=== PATIENT | female | born 1945 | race Caucasian/White ===

== ENCOUNTER → 2018-07-27 | Day surgery (SDC) | payer OTHER ==
[2018-07-24 14:56] LABS: BASOPHILS % 0.3 % (0.0-1.0); EOSINOPHILS # (AUTO) 0.2 (0.0-0.4); EOSINOPHILS % 2.9 % (0.0-6.0); HEMOGLOBIN 12.5 g/dL (12.0-16.0); LYMPHOCYTES # (AUTO) 3.3 (1.0-3.2); LYMPHOCYTES % 43.3 % (18.0-39.1); MEAN CORPUSCULAR HEMOGLOBIN 28.7 pg (28-32); MEAN CORPUSCULAR HGB CONC 32.1 g/dL (31-35); MEAN CORPUSCULAR VOLUME 89.4 fL (81-99); MONOCYTES # (AUTO) 0.6 (0.2-0.8); MONOCYTES % 7.8 % (4.4-11.3); NEUTROPHILS # (AUTO) 3.4 (2.1-6.9); NEUTROPHILS % 45.4 % (38.7-80.0); PLATELET COUNT 235 x10e3/uL (140-360); RED BLOOD COUNT 4.36 x10e6/uL (3.6-5.1); RED CELL DISTRIBUTION WIDTH 13.6 % (11.7-14.4)
[~2018-07-27] MED LIST: BREO ELLIPTA INH; CARTIA XT180 MG PO; FENTANYL CITRATE/PF 100MCG/2 ML INJ ONE; LEVOTHYROXINE112 MCG PO; LISINOPRIL10 MG PO; LOSARTAN POTAS100 MG PO; MEGACE40 MG; METFORMIN HCL500 MG PO; MIDAZOLAM HCL 2 MG/2 ML VIAL ONE; PROPOFOL IV EMULSION 10 MG/ML 50 ML VIAL ONE; SIMVASTATIN20 MG PO; ULTRAM50 MG PO; Z.0.GLUMETZA500 MG; Z.0.SYNTHROID125 MCG; Z.0.ZESTRIL10 MG; [UNRECOGNIZED DRUG - OTHER]
[2018-07-27 12:50] VITALS: BP 128/74
--- NOTE | 2018-07-27 15:18 | Operative Report ---
DATE OF PROCEDURE: July 27, 2018 REFERRING PHYSICIAN: Dr. Leo Herrera PROCEDURES PERFORMED 1. Esophagogastroduodenoscopy with biopsies. 2. Colonoscopy with polypectomy. INDICATIONS FOR EGD: Upper abdominal pain, history of heartburn. INDICATIONS FOR COLONOSCOPY: History of ulcerated cecum. History of colon polyps. Colonoscopy is being carried out to re-evaluate the cecum. MEDICATION: Patient was done under MAC. Please see anesthesiologist's note. PROCEDURE: With the patient in the left lateral decubitus position, the flexible fiberoptic Olympus gastroscope was introduced into the esophagus under direct visualization any difficulty. There was some patchy erythema noted in the distal esophagus. The scope was then advanced with ease into the stomach. Mucosa overlying the antrum and the body revealed some diffuse erythema and moderate edema, and biopsies were obtained and sent to stain for H. pylori. The pylorus was of normal contour and shape. It was intubated with ease, and the scope was advanced all the way to the 2nd portion of the duodenum. The scope was then withdrawn slowly. Mucosa overlying the proximal 2nd portion and the duodenal bulb appeared to be within normal limits. The scope was then withdrawn back into the stomach and retroflexed. The mucosa overlying the fundus and cardia appeared to be within normal limits. The scope was then straightened out. The stomach was decompressed. Scope was subsequently withdrawn. Patient tolerated the procedure well. IMPRESSION 1. Distal esophagitis, mild. 2. Gastritis, biopsied. Biopsies sent to stain for H. pylori. PLAN: Follow up histology. Initiate Protonix 40 mg 1 p.o. q.a.m. a.c. The patient was then turned around. After adequate lubrication of the anal canal, a flexible fiberoptic Olympus colonoscope was inserted into the rectum with ease and advanced all the way to the cecum. There was a single diverticulum noted in the cecum, and there was some evidence of low-grade infection with pus and inflammation involving the diverticulum. The rest of the cecum appeared to be within normal limits. The scope was then withdrawn slowly. Mucosa overlying the ascending colon appeared to be within normal limits. Diverticular disease was pretty much noted to be scattered throughout. Two polyps were hot biopsied in the transverse colon. Descending and sigmoid had scattered diverticular disease. The rectum appeared to be within normal limits. The scope was then retroflexed into the distal rectum, and small internal hemorrhoids were noted, none of which were actively bleeding. The scope was then straightened out. It was subsequently withdrawn. Patient tolerated the procedure well. IMPRESSION 1. Diverticulitis, low grade, cecum. 2. Transverse colon polyps times 2, hot biopsied. 3. Diverticulosis. 4. Internal hemorrhoids, none actively bleeding. PLAN: Follow up histology. Initiate high-fiber, low-fat diet. Initiate high-fiber supplement. Will need to initiate Flagyl 500 mg 1 p.o. q.i.d. x10 days and Levaquin 500 mg 1 p.o. daily x10 days. Job#: [id number] cc:LEO HERRERA, DO
== END | disposition home or self-care (01) ==
LOC: OR 08:30
PROVIDERS: ATTEND Internal Medicine Gastroenterology
DX: K21.0 Gastro-esophageal reflux disease with esophagitis (principal); Z12.11 Encounter for screening for malignant neoplasm of colon; D12.3 Benign neoplasm of transverse colon; R10.10 Upper abdominal pain, unspecified; K57.32 Diverticulitis of large intestine without perforation or abscess without bleeding; K64.8 Other hemorrhoids; I10 Essential (primary) hypertension; E78.5 Hyperlipidemia, unspecified; E03.9 Hypothyroidism, unspecified; J44.9 Chronic obstructive pulmonary disease, unspecified; K29.50 Unspecified chronic gastritis without bleeding; E11.9 Type 2 diabetes mellitus without complications; Z79.84 Long term (current) use of oral hypoglycemic drugs; E78.00 Pure hypercholesterolemia, unspecified; Z01.810 Encounter for preprocedural cardiovascular examination; Z01.812 Encounter for preprocedural laboratory examination; Z88.5 Allergy status to narcotic agent
CPT/HCPCS: 36415 ×2; 43239; 45384; 82948; 85025; 93005; J2250; 45378

== ENCOUNTER → 2020-09-01 | Outpatient (CLI) | payer MEDICARE ==
[~2020-09-01] MED LIST changes: -FENTANYL CITRATE/PF 100MCG/2 ML INJ ONE; -MIDAZOLAM HCL 2 MG/2 ML VIAL ONE; -PROPOFOL IV EMULSION 10 MG/ML 50 ML VIAL ONE
== END ==
LOC: CT 13:59
PROVIDERS: ATTEND Family Medicine
DX: G44.52 New daily persistent headache (NDPH) (principal); M50.30 Other cervical disc degeneration, unspecified cervical region; R26.81 Unsteadiness on feet
CPT/HCPCS: 70450; 72141

== ENCOUNTER → 2021-02-17 | Outpatient (CLI) | payer MEDICARE | LOC: DX 14:31 | PROVIDERS: ATTEND Family Medicine | DX: M81.0 Age-related osteoporosis without current pathological fracture (principal) | CPT/HCPCS: 77080 ==

== ENCOUNTER → 2021-02-19 | Outpatient (CLI) | payer MEDICARE | LOC: CARD 14:51 | PROVIDERS: ATTEND Family Medicine | DX: R20.2 Paresthesia of skin (principal); M79.605 Pain in left leg; M79.604 Pain in right leg; I73.9 Peripheral vascular disease, unspecified | CPT/HCPCS: 93925 ==

== ENCOUNTER → 2022-07-18 | Day surgery (SDC) | payer MEDICARE ==
[2022-07-13 16:04] LABS: BASOPHILS % 0.2 % (0.0-1.0); EOSINOPHILS # (AUTO) 0.2 (0.0-0.4); EOSINOPHILS % 2.2 % (0.0-6.0); HEMATOCRIT 34.7 % (34.2-44.1); HEMOGLOBIN 11.4 g/dL (12.0-16.0); LYMPHOCYTES # (AUTO) 3.5 (1.0-3.2); LYMPHOCYTES % 35.3 % (18.0-39.1); MEAN CORPUSCULAR HEMOGLOBIN 28.7 pg (28-32); MEAN CORPUSCULAR HGB CONC 32.9 g/dL (31-35); MEAN CORPUSCULAR VOLUME 87.4 fL (81-99); MONOCYTES # (AUTO) 0.9 (0.2-0.8); MONOCYTES % 9.3 % (4.4-11.3); NEUTROPHILS # (AUTO) 5.2 (2.1-6.9); NEUTROPHILS % 52.7 % (38.7-80.0); PLATELET COUNT 244 x10e3/uL (140-360); RED BLOOD COUNT 3.97 x10e6/uL (3.6-5.1)
[~2022-07-18] MED LIST changes: +ATP25 MG PO; +CYMBALTA30 MG PO; +FENTANYL CITRATE/PF 100MCG/2 ML INJ ONE; +GLUCAGON FOR INJ 1 MG VIAL ONE; +HYOSCYAMINE SULFATE 0.5 MG/ML INJ ONE; +LIDOCAINE HCL 2% LOCAL INJ 5 ML SDV VIAL INJ ONE; +MIDAZOLAM HCL 2 MG/2 ML VIAL ONE; +MULTI-VITAMIN1 EACH PO; +PROPOFOL IV EMULSION 10 MG/ML 20 ML VIAL ONE; +[UNRECOGNIZED DRUG - OTHER] PO
[2022-07-18 13:56] VITALS: BP 148/81
== END | disposition home or self-care (01) ==
LOC: OR 10:39
PROVIDERS: ATTEND Internal Medicine Gastroenterology
DX: Z09 Encounter for follow-up examination after completed treatment for conditions other than malignant neoplasm (principal); Z86.010 Personal history of colon polyps; K59.00 Constipation, unspecified; K57.30 Diverticulosis of large intestine without perforation or abscess without bleeding; K58.9 Irritable bowel syndrome, unspecified; K64.8 Other hemorrhoids; K21.9 Gastro-esophageal reflux disease without esophagitis; K44.9 Diaphragmatic hernia without obstruction or gangrene; Z71.3 Dietary counseling and surveillance; E11.9 Type 2 diabetes mellitus without complications; I25.10 Atherosclerotic heart disease of native coronary artery without angina pectoris; E78.5 Hyperlipidemia, unspecified; I10 Essential (primary) hypertension; J44.9 Chronic obstructive pulmonary disease, unspecified; E03.9 Hypothyroidism, unspecified; M54.9 Dorsalgia, unspecified; M19.90 Unspecified osteoarthritis, unspecified site; R42 Dizziness and giddiness; F32.A Depression, unspecified; Z88.6 Allergy status to analgesic agent; Z01.810 Encounter for preprocedural cardiovascular examination; Z01.812 Encounter for preprocedural laboratory examination; Z79.84 Long term (current) use of oral hypoglycemic drugs; Z79.899 Other long term (current) drug therapy; Z68.28 Body mass index [BMI] 28.0-28.9, adult; Z87.891 Personal history of nicotine dependence; Z80.0 Family history of malignant neoplasm of digestive organs
CPT/HCPCS: 36415 ×2; 45378; 82948; 85025; 93005; J1610; J1980; J2001; J2250; J2704; J3010

== ENCOUNTER → 2024-08-14 | Outpatient (REF) | payer MEDICARE ==
[~2024-08-14] MED LIST changes: -FENTANYL CITRATE/PF 100MCG/2 ML INJ ONE; -GLUCAGON FOR INJ 1 MG VIAL ONE; -HYOSCYAMINE SULFATE 0.5 MG/ML INJ ONE; -LIDOCAINE HCL 2% LOCAL INJ 5 ML SDV VIAL INJ ONE; -MIDAZOLAM HCL 2 MG/2 ML VIAL ONE; -PROPOFOL IV EMULSION 10 MG/ML 20 ML VIAL ONE
== END ==
LOC: DX 12:04
PROVIDERS: ATTEND Family Medicine
DX: M85.88 Other specified disorders of bone density and structure, other site (principal); N95.9 Unspecified menopausal and perimenopausal disorder
CPT/HCPCS: 77080

== ENCOUNTER 2025-08-11 11:29 | Inpatient (IN) | payer MEDICARE ==
[~2025-08-11] VITALS: Ht 160 cm; Wt 59.9 kg
[2025-08-11 11:52] VITALS: TEMP 100
[2025-08-11 13:01] LABS: BASOPHILS % 0.1 % (0.0-1.0); EOSINOPHILS % 0.9 % (0.0-6.0); LYMPHOCYTES % 2.8 % (18.0-39.1); MONOCYTES % 4.3 % (4.4-11.3); NEUTROPHILS % 91.0 % (38.7-80.0); RED CELL DISTRIBUTION WIDTH 14.5 % (11.7-14.4)
[2025-08-11] MEDS: ACETAMINOPHEN 1000 MG/100 ML IV STA (13:09)
[2025-08-11] MEDS: SODIUM CHLORIDE 0.9% 1000ML 1,000 ML IV STA (13:10)
[2025-08-11] MEDS: CEFTRIAXONE 2 GM in SODIUM CHLORIDE 0.9% 100 ML IV ONE (13:10)
[2025-08-11] MEDS: ONDANSETRON HCL INJ 2MG/ML 2ML 2 MG/ML VIAL IV STA (13:10)
[2025-08-11 13:17] LABS: CORONAVIRUS COVID-19 AG NEGATIVE (NEGATIVE)
[2025-08-11 13:46] LABS: INR 1.0
[2025-08-11 13:53] LABS: EST GLOMERULAR FILTRATION RATE 73.0 ML/MIN (>=60)
[2025-08-11 14:09] LABS: LEUKOCYTE ESTERASE ,URINE NEGATIVE (NEGATIVE); PROTEIN,URINE DIPSTICK 1+ (NEGATIVE); URINE UROBILINOGEN 0.2 mg/dL (0.2 - 1)
[2025-08-11] MEDS ORDERED: Morphine 2mg Syringe 2 MG/ML SYR IV PRN (16:15)
[2025-08-11] MEDS ORDERED: ONDANSETRON HCL INJ 2MG/ML 2ML 2 MG/ML VIAL IV PRN (16:15)
[2025-08-11 16:45] VITALS: PULSE 77; RESP 16
[2025-08-11] MEDS ORDERED: MINERAL OIL 132 ML BTL PR PRN (18:00)
[2025-08-11 19:47] VITALS: BP 145/72; PULSE 75; RESP 18; TEMP 98; O2SAT 100
[2025-08-11 20:00] VITALS: BP 145/72; PULSE 75; RESP 18; TEMP 98; O2SAT 100
[2025-08-11] MEDS: SODIUM CHLORIDE 0.9% 1000ML 1,000 ML IV SCH (20:05)
[2025-08-11 21:00] VITALS: BP 145/72; PULSE 75; RESP 18; TEMP 98; O2SAT 100
[2025-08-12] VITALS (10 sets, daily range): BP systolic 129–157; BP diastolic 70–90; PULSE 63–95; RESP 17–20; TEMP 97.4–98; O2SAT 97–100
[2025-08-12 06:02] LABS: BASOPHILS % 0.2 % (0.0-1.0); EOSINOPHILS % 6.4 % (0.0-6.0); LYMPHOCYTES % 13.9 % (18.0-39.1); MONOCYTES % 9.8 % (4.4-11.3); NEUTROPHILS % 69.3 % (38.7-80.0); RED CELL DISTRIBUTION WIDTH 14.6 % (11.7-14.4)
[2025-08-12 06:31] LABS: EST GLOMERULAR FILTRATION RATE 67.0 ML/MIN (>=60)
[2025-08-12] MEDS: LISINOPRIL 10 MG TAB PO SCH (16:29)
[2025-08-12] MEDS: DULOXETINE HCL 30 MG DELAYED RELEASE PO SCH (16:29)
[2025-08-12] MEDS ORDERED: BISACODYL 5 MG TAB EC PO PRN (17:30)
[2025-08-12] MEDS: BISACODYL 5 MG TAB EC PO ONE (18:02)
[2025-08-12] MEDS: TRAMADOL HCL 50 MG TAB PO PRN (18:02)
[2025-08-12] MEDS: SIMVASTATIN 20 MG TAB PO SCH (21:15)
[2025-08-12] MEDS: LOSARTAN POTASSIUM 100 MG TAB PO SCH (21:16)
[2025-08-13] VITALS (11 sets, daily range): BP systolic 126–165; BP diastolic 58–95; PULSE 59–75; RESP 16–18; TEMP 98–98.4; O2SAT 96–100
[2025-08-13] MEDS: LEVOTHYROXINE SODIUM 112 MCG TAB PO SCH (05:18)
[2025-08-13] MEDS: DILTIAZEM HCL 180 MG CAP ER PO SCH (09:01)
[2025-08-13 10:49] LABS: BASOPHILS % 0.1 % (0.0-1.0); EOSINOPHILS % 5.3 % (0.0-6.0); LYMPHOCYTES % 13.3 % (18.0-39.1); MONOCYTES % 9.8 % (4.4-11.3); NEUTROPHILS % 71.0 % (38.7-80.0); RED CELL DISTRIBUTION WIDTH 14.6 % (11.7-14.4)
[2025-08-13 11:41] LABS: EST GLOMERULAR FILTRATION RATE 72.0 ML/MIN (>=60)
[2025-08-13] MEDS ORDERED: ALBUTEROL/IPRATROPIUM 3 ML NEB NEB PRN (20:15)
[2025-08-14 03:13] VITALS: BP 167/79; PULSE 75; RESP 18; TEMP 98.2; O2SAT 99
[2025-08-14 06:30] VITALS: PULSE 83; RESP 20; O2SAT 96
[2025-08-14 09:18] VITALS: BP 160/89; PULSE 77; RESP 17; TEMP 98.1; O2SAT 98
[2025-08-14 13:06] VITALS: BP_SYST 160; BP_SYST 163; BP_DIAS 78; BP_DIAS 89; PULSE 76; PULSE 77; RESP 17; RESP 18; TEMP 97.9; TEMP 98.1; O2SAT 98
[2025-08-14] MEDS ORDERED: ACETAMIN/BUTALBITAL/CAFFEINE TAB PO PRN (14:30)
[2025-08-14] MEDS ORDERED: NORVASC10 MG PO (15:41)
[2025-08-14] MEDS ORDERED: THERMOTABS PO (15:45)
[2025-08-14] MEDS: ACETAMIN/BUTALBITAL/CAFFEINE TAB PO ONE (16:04)
[2025-08-14] MEDS ORDERED: AMLODIPINE BESYLATE 10 MG TAB PO ONE (16:30)
[2025-08-14 16:32] VITALS: BP 152/80
[2025-08-14] MEDS ORDERED: SODIUM CHLORIDE 452MG TAB PO SCH (17:00)
[2025-08-15] MEDS ORDERED: AMLODIPINE BESYLATE 10 MG TAB PO SCH (09:00)
== END 2025-08-14 17:30 | disposition home health service (06) | DRG 641 ==
LOC: ER 11:43 → ERHOLD 16:17 → MED/SURG3 19:41
PROVIDERS: ADMIT Internal Medicine; ATTEND Internal Medicine
DX: E86.0 Dehydration (principal); K57.92 Diverticulitis of intestine, part unspecified, without perforation or abscess without bleeding; E87.1 Hypo-osmolality and hyponatremia; I10 Essential (primary) hypertension; E11.9 Type 2 diabetes mellitus without complications; E03.9 Hypothyroidism, unspecified; E78.5 Hyperlipidemia, unspecified; K56.41 Fecal impaction; R74.01 Elevation of levels of liver transaminase levels; E87.6 Hypokalemia; R11.0 Nausea; Z11.52 Encounter for screening for COVID-19; Z87.440 Personal history of urinary (tract) infections; Z88.5 Allergy status to narcotic agent; Z79.890 Hormone replacement therapy
CPT/HCPCS: 36415; 71045; 74018; 74176; 80053; 81001; 82550; 82948; 83735; 84484; 85025; 85610; 85730; 87040; 87086; 93005; 94799; 99284; J0696; J2405; J2470; J2543; J7030; J7050